=== PATIENT | female | born 1945 | race Caucasian/White ===

== ENCOUNTER → 2020-05-08 13:00 | Outpatient (CLI) | payer MEDICARE, SELFPAY ==
--- NOTE | ~2020-05-08 | CT_ITS ---
EXAMINATION: CT abdomen pelvis w con DATE: 05/08/2020 15:12 INDICATION: Restaging of malignant pancreatic neoplasm; Whipple surgery 1.5 years ago TECHNIQUE: Computed tomography (CT) of the abdomen and pelvis was performed with 100 cc Omnipaque 350 intravenous contrast. Automated exposure control and iterative reconstruction technique were employe d. Exam dose: 234.70 mGy-cm total exam DLP. COMPARISON: None. FINDINGS: The lower lung zones are clear. Normal heart size. No pericardial or pleural effusion. Postoperative changes secondary to reported Whipple procedure. Pneumobilia and air in the pancreatic duct. Status post cholecystectomy. Diffuse hepatic steatosis. No hepatic, splenic space-occupying mass lesion. 8.4 x 12 mm cystic lesion at the left lateral margin of the pancreatic remnant; differential diagnosi s includes recurrent malignancy, pseudocyst. No adrenal mass lesion. Approximately 9 x 12 mm hypoenhancing lateral upper pole right renal indeterminate lesion. 2 mm nonobstructing lower pole left renal calculus. No obstructing urinary tract calculus or hydroure teronephrosis. Extensive abdominal aortic calcification. No abdominal aortic aneurysm. No intraperitoneal or retrope ritoneal or pelvic mass lesion or lymphadenopathy. Status post hysterectomy. There is a small sliding hiatal hernia. There is a prominent of fecal material in the colon. No bowel obstruction, bowel wall thickening, pne umatosis or intraperitoneal free air is detected. There is prominent degenerative disc disease at L4-5 and L5-S1 Grade 1 anterolisthesis at L5-S1 due to degenerative change at the apophyseal joints IMPRESSION: Status post Whipple procedure for pancreatic carcinoma There is an 8.4 x 12 mm hypoattenuating lesion at the left lateral margin of the pancreatic remnant; recommend comparison with prior CT abdomen examinations with particular attention to this area. Recur rent neoplasm, pseudocyst are differential diagnostic considerations. Hepatic steatosis 9 x 12 mm hypoattenuating lateral upper pole right renal lesions; recommend comparison with prior exa minations and possibly sonographic correlation 2 mm nonobstructing lower pole left renal calculus Small sliding hiatal hernia Status post cholecystectomy Status post hysterectomy Reviewed, dictated and finalized at [facility]. Reviewed, dictated and finalized at location A. IMPRESSION: Status post Whipple procedure for pancreatic carcinoma There is an 8.4 x 12 mm hypoattenuating lesion at the left lateral margin of th e pancreatic remnant; recommend comparison with prior CT abdomen examinations w ith particular attention to this area. Recurrent neoplasm, pseudocyst are diffe rential diagnostic considerations. Hepatic steatosis 9 x 12 mm hypoattenuating lateral upper pole right renal lesions; recommend com parison with prior examinations and possibly sonographic correlation 2 mm nonobstructing lower pole left renal calculus Small sliding hiatal hernia Status post cholecystectomy Status post hysterectomy
[2020-05-08 15:03] LABS: Estimated Glomerular Filt Rate > 60
== END ==
PROVIDERS: Nurse Practitioner; PCP Student in an Organized Health Care Education/Training Program; Visit Provider Student in an Organized Health Care Education/Training Program
DX: C25.9 Malignant neoplasm of pancreas, unspecified (principal); Z90.49 Acquired absence of other specified parts of digestive tract; K76.0 Fatty (change of) liver, not elsewhere classified; N28.9 Disorder of kidney and ureter, unspecified; N20.0 Calculus of kidney; K44.9 Diaphragmatic hernia without obstruction or gangrene; Z90.710 Acquired absence of both cervix and uterus
CPT/HCPCS: 74177; Q9967

== ENCOUNTER → 2020-07-02 13:32 | Outpatient (CLI) | payer MEDICARE, SELFPAY ==
--- NOTE | ~2020-07-02 | MM_ITS ---
EXAMINATION: MM screening julianne BI w rosetta HISTORY: Screening mammogram TECHNIQUE: Craniocaudal and mediolateral oblique 3-D tomosynthesis images were obtained and synthetic 2-D images were generated. CAD analysis was submitted and interpreted. COMPARISON: No prior mammogram is available for comparison at this institution. BREAST PARENCHYMAL COMPOSITION: There are scattered areas of fibroglandular density. FINDINGS: There is no evidence of suspicious mass, calcification, or architectural distortion to sugg est malignancy in either breast. There has been no suspicious interval change. IMPRESSION: 1. No mammographic evidence of malignancy. 2. Recommend routine screening mammography in one year. BI-RADS Category 1: Negative Reviewed, dictated and finalized at location A. UNT MANAGER TRAINEE
== END ==
PROVIDERS: PCP Student in an Organized Health Care Education/Training Program; Visit Provider Student in an Organized Health Care Education/Training Program
DX: Z12.31 Encounter for screening mammogram for malignant neoplasm of breast (principal)
CPT/HCPCS: 77063; 77067

== ENCOUNTER 2020-08-21 09:24 | Emergency (ER) | payer MEDICARE, SELFPAY ==
--- NOTE | ~2020-08-21 | XR_ITS ---
EXAMINATION: XR chest 1V portable DATE: 08/21/2020 10:36 INDICATION: Shortness of breath. Cough. TECHNIQUE: A single frontal view of the chest was obtained. COMPARISON: CT abdomen and pelvis 05/08/2020 FINDINGS: Calcified left lung nodules are consistent with old granulomatous disease. No pleural effus ion or pneumothorax. The heart size is normal. There is a small hiatal hernia. There are surgical cli ps in the abdomen. IMPRESSION: 1. Small hiatal hernia. Reviewed, dictated and finalized at location [facility]. OFF SAW TENDER METAL IMPRESSION: 1. Small hiatal hernia.
[2020-08-21 10:15] VITALS: BP 148/79; PULSE 97; RESP 16; TEMP 36.3; O2SAT 100
[2020-08-21 10:34] LABS: Basophils Percent Auto 0.2 % (0.2-1.2); Eosinophils Percent Auto 0.2 % (0-4.4); Hematocrit 35.7 % (37.0-47.0); Immature Granulocyte Absolute 0.03 K/mm3 (0.00-0.031); Immature Granulocyte Percent A 0.6 % (0-0.5); Lymphocytes Absolute Auto 1.26 K/mm3 (0.9-3.2); Lymphocytes Percent Auto 24.9 % (18.3-44.2); Mean Corpuscular HGB Conc 33.6 g/dl (32-36); Mean Corpuscular Hemoglobin 29.6 pg (26-34); Mean Corpuscular Volume 88.1 fl (80-100); Mean Platelet Volume 8.9 fl (7.4-10.4); Monocytes Absolute Auto 0.3 K/mm3 (0.1-0.6); Monocytes Percent Auto 5.3 % (2.6-8.5); Neutrophils Absolute Auto 3.5 K/mm3 (1.3-6.7); Neutrophils Percent Auto 68.8 % (45.5-73.1); Platelet Count Result 275 k/mm3 (150-375); Red Blood Count 4.05 M/mm3 (4.2-5.4); Red Cell Distribution Width 13.3 % (11.5-14.5); White Blood Count 5.1 K/mm3 (4.5-10.0)
[2020-08-21 10:45] LABS: INR 0.9; Partial Thromboplastin Time 25.9 SECONDS (22.3-36.8); Prothrombin Time 12.8 Seconds (11.1-14.7)
[2020-08-21] MEDS: LORazepam INJ (*CRX) 2 MG/ML VIAL 0.5 MG IV PUSH ×2 (10:46→13:06)
[2020-08-21] MEDS: SODIUM CHLORIDE 0.9% IV 1,000 ML 999 ML IV CONT (10:46)
[2020-08-21 10:47] LABS: Lactic Acid Reflex 1.7 mmol/L (0.7-2.1)
[2020-08-21 10:49] LABS: Alanine Aminotransferase 28 U/L (4-35); Albumin Level 4.3 g/dL (3.5-5.1); Alkaline Phosphatase 82 U/L (38-126); Anion Gap 7 mmol/L (8-16); Aspartate Amino Transferase 36 U/L (14-36); Bilirubin,Total 0.3 mg/dL (0.2-1.3); Blood Urea Nitrogen 17 mg/dL (7-17); CRP 1.1 mg/dL (<1.0); Calcium 9.7 mg/dL (8.4-10.2); Carbon Dioxide 25 mmol/L (22-30); Chloride 107 mmol/L (98-107); Estimated Glomerular Filt Rate > 60; Glucose 96 mg/dL (65-105); Lipase 21 U/L (23-300); Potassium 4.4 mmol/L (3.4-5.0); Sodium 139 mmol/L (137-145)
[2020-08-21 10:57] LABS: Troponin I 0.024 ng/mL (0.000-0.034)
[2020-08-21 11:00] VITALS: BP 154/87; PULSE 87; RESP 18; O2SAT 98
[2020-08-21 11:33] LABS: Add Urine Microscopic? YES; Appearance Urine Clear (Clear); Bacteria Urine Trace /hpf; Bilirubin Urine Negative (Negative); Blood Urine Negative (Negative); Color Urine Straw (Yellow); Glucose Urine UA Negative (Negative); Ketones Urine Negative (Negative); Leukocyte Esterase Ur 2+ LEU/UL (Negative); Mucus Urine Rare /lpf; Nitrate Urine Negative (Negative); Protein Urine 1+ mg/dL (Negative); Specific Grav Ur 1.013 (1.001-1.035); Squamous Epithelial Cell Urine Rare /hpf (Few); Transitional Epi Cells Urine Rare /hpf (None Seen); Urobilinogen Urine Negative mg/dL (<2.0); WBC Urine >75 /hpf
--- NOTE | 2020-08-21 12:04 | ED.GENADULT ---
HPI - General Adult General Chief complaint: Weakness Stated complaint: Multiple Complaints, Sick for Weeks Time Seen by Provider: 08/21/20 09:35 Source: patient and EMS Mode of arrival: EMS Limitations: no limitations History of Present Illness HPI narrative: Patient is a 75-year-old female who presents to emergency department for evaluation of multiple complaints to include congestion rhinorrhea cough that is nonproductive for the last 2 to 3 weeks was also evaluated by primary care in the last several days started on antibiotics was unable to tolerate them. Patient presents per EMS noting generalized body aches with discomfort in the suprapubic region. Patient notes nausea denies emesis. Patient on arrival appears uncomfortable and anxious in the room. Patient denies rectal bleeding melena hematemesis Related Data Allergies Allergy/AdvReac Type Severity Reaction Status Date / Time sulfamethoxazole Allergy Unknown Verified 08/21/20 11:29 [From Bactrim] trimethoprim [From Bactrim] Allergy Unknown Verified 08/21/20 11:29 Course Course Emergency Course: Patient was evaluated in the emergency department found to have urinary tract infection given fluids and IV antibiotics is feeling better at this time tolerating p.o. intake patient was offered inpatient therapy for her symptoms but prefers to go home and no she will follow with primary care has been given reasons to return and agrees to do so if symptoms worsen patient without other high risk changes in the blood work or imaging patient did have some bouts of anxiety with history of anxiety was medicated for this with some improvement in her anxiety patient was swabbed for Covid and will follow with primary care for these results as well as reevaluation Consultations Consultation #1: Primary CARE made aware of case findings treatment plan diagnosis and will help facilitate following up with patient as well as obtaining COVID-19 results Date: 08/21/20 Time: 13:24 Vital Signs Vital signs: Vital Signs Temperature 97.3 F L 08/21/20 10:15 Pulse Rate 97 08/21/20 10:15 Respiratory Rate 16 08/21/20 10:15 Blood Pressure 148/79 H 08/21/20 10:15 Pulse Oximetry 100 08/21/20 10:15 Temperature 97.3 F L 08/21/20 10:15 Pulse Rate 114 H 08/21/20 12:05 Respiratory Rate 117 H 08/21/20 12:05 Blood Pressure 136/82 08/21/20 12:05 Pulse Oximetry 98 08/21/20 12:05 Medical Decision Making MDM Narrative Medical decision making narrative: Patient presented with anxiety upper respiratory symptoms as well as urinary symptoms patient was found to have urinary tract infection with the likely etiology of her symptoms was swabbed for Covid no pneumonia no hypoxemia patient will be discharged home for outpatient reevaluation patient will quarantine until she has received her results patient was given fluids and antibiotic in the emergency department prior to discharge Vital Signs Vital Signs: Vital Signs Temperature 97.3 F L 08/21/20 10:15 Pulse Rate 97 08/21/20 10:15 Respiratory Rate 16 08/21/20 10:15 Blood Pressure 148/79 H 08/21/20 10:15 Pulse Oximetry 100 08/21/20 10:15 Temperature 97.3 F L 08/21/20 10:15 Pulse Rate 114 H 08/21/20 12:05 Respiratory Rate 117 H 08/21/20 12:05 Blood Pressure 136/82 08/21/20 12:05 Pulse Oximetry 98 08/21/20 12:05 Lab Data Result diagrams: 08/21/20 10:24 08/21/20 10:24 Labs: Lab Results 08/21/20 08/21/20 08/21/20 Range/Units 10:24 10:24 10:24 WBC 5.1 (4.5-10.0) K/mm3 RBC 4.05 L (4.2-5.4) M/mm3 Hgb 12.0 (12.0-15.0) g/dL Hct 35.7 L (37.0-47.0) % MCV 88.1 (80-100) fl MCH 29.6 (26-34) pg MCHC 33.6 (32-36) g/dl RDW 13.3 (11.5-14.5) % Plt Count 275 (150-375) k/mm3 MPV 8.9 (7.4-10.4) fl Immature Gran % (Auto) 0.6 H (0-0.5) % Neut % (Auto) 68.8 (45.5-73.1) % Lymph % (Auto) 24.9 (18.3-44.2) % [place] % (Auto) 5.3
[2020-08-21 12:05] VITALS: BP 136/82; PULSE 114; RESP 117; O2SAT 98
[2020-08-21 13:31] VITALS: BP 149/66; PULSE 98; RESP 16; O2SAT 97
[2020-08-22 01:27] LABS: SARS-CoV-2 RNA PCR Positive
== END 2020-08-21 13:45 | disposition home or self-care (01) ==
PROVIDERS: Emergency Medicine Emergency Medical Services; Emergency Provider Emergency Medicine; PCP Student in an Organized Health Care Education/Training Program
DX: U07.1 COVID-19 (principal); J06.9 Acute upper respiratory infection, unspecified; N39.0 Urinary tract infection, site not specified; K44.9 Diaphragmatic hernia without obstruction or gangrene; R10.30 Lower abdominal pain, unspecified
CPT/HCPCS: 36415; 71045; 80053; 81001; 83605; 83690; 84484; 85025; 85610; 85730; 86140; 87040; 87086; 96361; 96365; 96375; 99284; C9803; J0696; J2060; J7030; U0003; U0005

== ENCOUNTER → 2020-11-13 12:07 | Outpatient (CLI) | payer MEDICARE, SELFPAY ==
--- NOTE | ~2020-11-13 | DEXA_ITS ---
Bone Density Report Name: China Singer Age: 75 Sex: Female Ethnicity: White Date of : 1945 Indication: postmenopausal; screening for osteoporosis; height loss; cancer; hysterectomy; Referring Provider: Lissa, Amanda Santiago Study: Bone densitometry was performed. Exam Date: November 13, 2020 Accession number: [id number] Bone Density: Region BMD T-score Z-score Classification AP Spine (L1, L3, L4) 0.936 -1.1 1.3 Osteopenia Femoral Neck (Left) 0.694 -1.4 0.6 Osteopenia Total Hip (Left) 0.828 -0.9 0.8 Normal Femoral Neck (Right) 0.633 -1.9 0.0 Osteopenia Total Hip (Right) 0.762 -1.5 0.2 Osteopenia Total Hip Mean 0.795 -1.2 0.5 Osteopenia World Health Organization criteria for BMD impression classify patients as: Normal (T-score at or above -1.0), Osteopenia (T-score between -1.0 and -2.5), or Osteoporosis (T-score at or below -2.5). 10-year Fracture Risk(1): Major Osteoporotic Fracture 11% Hip Fracture 2.7% Reported Risk Factors: [place] (), Neck BMD=0.633, BMI=22.1 (1) FRAX(R) Version 3.08. Fracture probability calculated for an untreated patient. Fracture probability may be lower if the patient has received treatment. Clinical Information Provided by Patient: Has used the following medications: Calcium Has the following medical conditions: Cancer, Hysterectomy Patient maximum height was 62 Menopause Age: 45 No regular weight bearing exercise Onset of menses at age 15 Number of children 2 Impression: The patient has low bone mass, based on the Right Femoral Neck T-score. The patient has an estimated ten-year risk of hip fracture of 2.7% and an estimated ten-year risk of major fracture of 11%, based on the WHO FRAX algorithm. Discussion: BONE DENSITY IS LOW AT ONE OR MORE SKELETAL SITES. This patient's lowest T-score is low at one or more skeletal sites. It meets the World Health Organization's (WHO) criteria for ?low bone mass? (T-score between -1.0 and -2.5). The patient's 10-year risk of fracture as calculated by FRAX is less than the threshold where pharmacological therapy is recommended by the National Osteoporosis Foundation (NOF). However, all treatment decisions require clinical judgment and consideration of individual patient factors, including patient preferences, comorbidities, previous drug use, risk factors not captured in the FRAX model (e.g., frailty, falls, vitamin D deficiency, increased bone turnover, interval significant decline in bone density) and possible under or overestimation of fracture risk by FRAX. The patient should follow a healthful lifestyle (good nutrition with adequate calcium and vitamin D, and appropriate weight-bearing exercise). Follow-Up: Consider repeating this study in 2 to 3 years to reassess this patient's status, or sooner if
== END ==
PROVIDERS: PCP Student in an Organized Health Care Education/Training Program; Visit Provider Nurse Practitioner Obstetrics & Gynecology
DX: M85.88 Other specified disorders of bone density and structure, other site (principal); M85.852 Other specified disorders of bone density and structure, left thigh; M85.851 Other specified disorders of bone density and structure, right thigh
CPT/HCPCS: 77080

== ENCOUNTER → 2021-08-20 10:13 | Outpatient (CLI) | payer MEDICARE, SELFPAY ==
--- NOTE | ~2021-08-20 | MM_ITS ---
EXAMINATION: MM screening julianne BI w rosetta HISTORY: Screening TECHNIQUE: Craniocaudal and mediolateral oblique 3-D tomosynthesis images were obtained and synthetic 2-D images were generated. CAD analysis was submitted and interpreted. COMPARISON: 07/02/2020 BREAST PARENCHYMAL COMPOSITION: Breast composed of scattered areas of fibroglandular density FINDINGS: There is no evidence of suspicious mass, calcification, or architectural distortion to sugg est malignancy in either breast. There has been no suspicious interval change. IMPRESSION: 1. No mammographic evidence of malignancy. 2. Recommend routine screening mammography in one year. BI-RADS Category 1: Negative Reviewed, dictated and finalized at location A. R FOAM RUBBER
== END ==
PROVIDERS: PCP Student in an Organized Health Care Education/Training Program; Visit Provider Student in an Organized Health Care Education/Training Program
DX: Z12.31 Encounter for screening mammogram for malignant neoplasm of breast (principal)
CPT/HCPCS: 77063; 77067

== ENCOUNTER → 2022-10-27 14:47 | Outpatient (CLI) | payer MEDICARE, SELFPAY ==
--- NOTE | ~2022-10-27 | MM_ITS ---
EXAMINATION: MM screening julianne BI w rosetta HISTORY: Screening TECHNIQUE: Craniocaudal and mediolateral oblique 3-D tomosynthesis images were obtained and synthetic 2-D images were generated. CAD analysis was submitted and interpreted. COMPARISON: No prior mammogram is available for comparison at this institution. BREAST PARENCHYMAL COMPOSITION: Breast composed of scattered areas of fibroglandular density FINDINGS: There is new focal asymmetry medial aspect of the left breast on CC view. The right breast is stable without evidence for malignancy. IMPRESSION: 1. New focal left breast asymmetry medially on CC view. 2. Additional mammographic views and possible breast ultrasound are recommended. BI-RADS Category 0: Incomplete: Needs additional imaging evaluation. Reviewed, dictated and finalized at location A. IMPRESSION: 1. New focal left breast asymmetry medially on CC view. 2. Additional mammographic views and possible breast ultrasound are recommended . BI-RADS Category 0: Incomplete: Needs additional imaging evaluation.
== END ==
PROVIDERS: PCP Student in an Organized Health Care Education/Training Program; Visit Provider Student in an Organized Health Care Education/Training Program
DX: Z12.31 Encounter for screening mammogram for malignant neoplasm of breast (principal); R92.8 Other abnormal and inconclusive findings on diagnostic imaging of breast
CPT/HCPCS: 77063; 77067

== ENCOUNTER → 2022-12-14 14:15 | Outpatient (CLI) | payer MEDICARE, SELFPAY ==
--- NOTE | ~2022-12-14 | MM_ITS ---
EXAMINATION: MM diagnostic julianne LT w rosetta HISTORY: Left breast asymmetry on screening mammogram TECHNIQUE: Additional 3-D tomosynthesis images of the left breast were performed and synthetic 2-D im ages were generated. CAD analysis was submitted and interpreted. COMPARISON: 10/27/2022, 08/20/2021, 07/02/2020 BREAST PARENCHYMAL COMPOSITION: There are scattered areas of fibroglandular density. FINDINGS: There is a return to baseline fibroglandular appearance with spot compression of the left b reast in the area questioned on screening mammogram. IMPRESSION: 1. No mammographic evidence of malignancy. 2. Recommend routine screening mammography in one year. BI-RADS Category 1: Negative Reviewed, dictated and finalized at location A.
== END ==
PROVIDERS: PCP Student in an Organized Health Care Education/Training Program; Visit Provider Student in an Organized Health Care Education/Training Program
DX: R92.8 Other abnormal and inconclusive findings on diagnostic imaging of breast (principal)
CPT/HCPCS: 77061; 77065; G0279

== ENCOUNTER → 2023-01-04 12:19 | Outpatient (CLI) | payer MEDICARE, SELFPAY ==
--- NOTE | ~2023-01-04 | DEXA_ITS ---
Bone Density Report Name: SIOMARA GARLAND Age: 77 Sex: Female Ethnicity: White Date of : 1945 Indication: osteopenia; height loss; hysterectomy; postmenopausal Referring Provider: Raysa, Bernabe Study: Bone densitometry was performed. Exam Date: January 04, 2023 Accession number: [id number] Bone Density: Region BMD T-score Z-score Classification AP Spine (L1, L3, L4) 0.982 -0.6 1.8 Normal Femoral Neck (Left) 0.635 -1.9 0.2 Osteopenia Total Hip (Left) 0.804 -1.1 0.7 Osteopenia Femoral Neck (Right) 0.617 -2.1 0.0 Osteopenia Total Hip (Right) 0.769 -1.4 0.4 Osteopenia Total Hip Mean 0.787 -1.3 0.6 Osteopenia World Health Organization criteria for BMD impression classify patients as: Normal (T-score at or above -1.0), Osteopenia (T-score between -1.0 and -2.5), or Osteoporosis (T-score at or below -2.5). 10-year Fracture Risk(1): Major Osteoporotic Fracture 13% Hip Fracture 3.5% Reported Risk Factors: [place] (), Neck BMD=0.617, BMI=22.4 (1) FRAX(R) Version 3.08. Fracture probability calculated for an untreated patient. Fracture probability may be lower if the patient has received treatment. Previous Exams: Region Exam Age BMD T-score BMD Change BMD Change Date g/cm2 vs Baseline vs Previous AP Spine(L1, L3, L4) 01/04/2023 77 0.982 -0.6 0.046* 0.046* 11/13/2020 75 0.936 -1.1 Total Hip(Left) 01/04/2023 77 0.804 -1.1 -0.024 -0.024 11/13/2020 75 0.828 -0.9 Total Hip(Right) 01/04/2023 77 0.769 -1.4 0.008 0.008 11/13/2020 75 0.762 -1.5 *Denotes significance at 95% confidence level, LSC for AP Spine = 0.022 g/cm2, LSC for Total Hip = 0.027 g/cm2 Clinical Information Provided by Patient: Has used the following medications: Calcium Has the following medical conditions: Hysterectomy Patient maximum height was 62 Menopause Age: 45 No regular weight bearing exercise Drinks caffeinated beverages Onset of menses at age 15 Number of children 2 Impression: The patient has low bone mass, based on the Right Femoral Neck T-score. The patient has an estimated ten-year risk of hip fracture of 3.5% and an estimated ten-year risk of major fracture of 13%, based on the WHO FRAX algorithm. No significant bone loss was observed. Discussion: BONE DENSITY IS LOW AT ONE OR MORE SKELETAL SITES. THE PATIENT'S BMD AND CLINICAL RISK FACTORS CONTRIBUTE TO THIS PATIENT
== END ==
PROVIDERS: PCP Student in an Organized Health Care Education/Training Program; Visit Provider Student in an Organized Health Care Education/Training Program
DX: M85.80 Other specified disorders of bone density and structure, unspecified site (principal); Z78.0 Asymptomatic menopausal state
CPT/HCPCS: 77080

== ENCOUNTER 2024-01-12 14:30 | Outpatient (CLI) | payer MEDICARE, SELFPAY ==
--- NOTE | ~2024-01-12 | MM_ITS ---
EXAMINATION: MM screening julianne BI w rosetta HISTORY: Screening TECHNIQUE: Craniocaudal and mediolateral oblique 3-D tomosynthesis images were obtained and synthetic 2-D images were generated. CAD analysis was submitted and interpreted. COMPARISON: Comparison to multiple prior studies sequentially, with oldest reviewed study dated 09/2019. BREAST PARENCHYMAL COMPOSITION: Not dense: There are scattered areas of fibroglandular density. FINDINGS: There is no evidence of suspicious mass, calcification, or architectural distortion to sugg est malignancy in either breast. There has been no suspicious interval change. IMPRESSION: 1. No mammographic evidence of malignancy. 2. Recommend routine screening mammography in one year. BI-RADS Category 1: Negative Reviewed, dictated and finalized at location B.
== END 2024-01-12 14:31 ==
LOC: MICIMG 14:31
PROVIDERS: PCP Student in an Organized Health Care Education/Training Program; Visit Provider Student in an Organized Health Care Education/Training Program
DX: Z12.31 Encounter for screening mammogram for malignant neoplasm of breast (principal)
CPT/HCPCS: 77063; 77067

== ENCOUNTER 2025-04-24 15:34 | Outpatient (CLI) | payer MEDICARE, SELFPAY ==
--- NOTE | ~2025-04-24 | MM_ITS ---
EXAMINATION: MM screening julianne BI w rosetta HISTORY: Screening TECHNIQUE: Craniocaudal and mediolateral oblique 3-D tomosynthesis images were obtained and synthetic 2-D images were generated. CAD analysis was submitted and interpreted. COMPARISON: 10/27/2022 BREAST PARENCHYMAL COMPOSITION: There are scattered areas of fibroglandular density. FINDINGS: There is no evidence of suspicious mass, calcification, or architectural distortion to suggest malignancy. There has been no suspicious interval change. IMPRESSION: 1. No mammographic evidence of malignancy. Recommend routine screening mammography in one year. BI-RADS Category 2: Benign finding(s) Reviewed, dictated and finalized at location Q. IMPRESSION: 1. No mammographic evidence of malignancy. Recommend routine screening mammogra phy in one year. BI-RADS Category 2: Benign finding(s)
== END 2025-04-24 15:35 | disposition home or self-care (01) ==
PROVIDERS: PCP Student in an Organized Health Care Education/Training Program; Visit Provider Student in an Organized Health Care Education/Training Program
DX: Z12.31 Encounter for screening mammogram for malignant neoplasm of breast (principal)
CPT/HCPCS: 77063; 77067